=== PATIENT | female | born 1955 | race Caucasian/White ===

== ENCOUNTER 2024-02-13 08:52 | Outpatient (CLI) | payer MEDICARE, SELFPAY ==
--- NOTE | 2024-02-13 09:16 | ECG_ITS ---
Test Date: 2024-02-13 09:23:18 Measurements Intervals [place] Rate: 60 P: 40 CA: 188 QRS: -13 QRSD: 101 T: 51 QT: 411 QTc: 413 Interpretive Statements SINUS RHYTHM NORMAL ECG No previous ECG available for comparison Electronically Signed On 02-13-2024 10:48:06 CDT by Levon Perkins M.D.
== END 2024-02-13 08:53 | disposition home or self-care (01) ==
LOC: ANHLAB 09:02 → ANHCARD 09:06
PROVIDERS: PCP Family Medicine
DX: C50.812 Malignant neoplasm of overlapping sites of left female breast (principal)
CPT/HCPCS: 93005

== ENCOUNTER 2024-07-31 11:01 | Emergency (ER) | payer MEDICARE, SELFPAY ==
[2024-07-31 11:13] VITALS: BP 161/94; PULSE 61; RESP 16; TEMP 36.8; O2SAT 100
--- NOTE | 2024-07-31 12:00 | ED_ITS ---
HPI - Ear Problem General Chief complaint: Ear Stated complaint: Ear Pain Time Seen by Provider: 07/31/24 11:25 Source: patient, RN notes reviewed and old records reviewed Mode of arrival: ambulatory Limitations: no limitations History of Present Illness HPI Narrative: 68 year old female presents to [facility] with complaints of bilateral ears feel clogged and she has decreased hearing to both her ears. Patient reports that she normally has her ears irrigated and cleaned every 6 months at her doctors office and doesn't have an appointment till August. She states that he doesn't think she can wait till then to get them cleaned ears feel full and somewhat irritated, denies pain to ears. Patient reports that she has never tried Debrox to her ears. MD Complaint: other (ears feel clogged) Location: bilateral Duration: constant Severity: moderate Associated symptoms ear: decreased hearing and other (feels fullness to ears) Related Data Home Medications ?Medication ?Instructions ?Recorded ?Confirmed ?Last Taken ?Type hydrochlorothiazide 12.5 mg capsule 12.5 mg PO DAILY 01/13/21 07/31/24 07/31/24 History anastrozole 1 mg tablet 1 mg PO DAILY 07/31/24 07/31/24 07/31/24 History Allergies Allergy/AdvReac Type Severity Reaction Status Date / Time No Known Allergies Allergy Unknown Verified 07/31/24 11:20 Review of Systems Review of Systems: CONSTITUTIONAL: Denies fever, chills, or sweats. EYES: Denies visual changes, redness, or discharge. ENT: Denies rhinorrhea, congestion, sore throat, reports ear fullness and decreased hearing CARDIOVASCULAR: Denies chest pain, palpitations, or edema. RESPIRATORY: Denies cough or dyspnea. GASTROINTESTINAL: Denies abdominal pain, nausea, vomiting, or diarrhea. GENITOURINARY: Denies dysuria or hematuria. SKIN: Denies rash or itching. MUSCULOSKELETAL: Denies back pain, joint pain, or myalgia. NEUROLOGIC: Denies headache, numbness, or weakness. PSYCHIATRIC: Denies anxiety or depression. All systems reviewed & are unremarkable except as noted in HPI and below PMFSH Past Medical History Medical History Breast cancer Hypertension Surgical History Surgical History Status post left breast lumpectomy radiation treatment Family History Family History Father Alcoholism Lung cancer Hypertension Social History Social History Smoking status: Never smoker Alcohol intake: never Substance use: never Substance use type: does not use Spiritual care concerns: No Comments At time of signature, agree with nursing past medical, surgical, social and family history. There is no relevant family history pertinent to the presenting complaint Exam Narrative: GENERAL: Well-appearing, well-nourished, and in no acute distress. HEAD: Normocephalic, atraumatic. EYES: PERRLA and EOMI. ENT: Nares clear, no rhinorrhea or epistaxis. Mucous membranes moist.Bilateral ear pressure reported with bilateral cerumen impaction of bilateral ears, see procedure note. NECK: Supple. no lymphadenopathy CHEST: Clear to auscultation. No respiratory distress. SAO2 100% on room air HEART: Regular rate and rhythm. No murmur heard. Normal peripheral pulses. ABDOMEN: Soft, nontender, nondistended, normal active bowel sounds. EXTREMITIES: Normal range of motion. No edema. SKIN: Warm, dry, no rash. NEURO: No focal deficits. Alert and oriented x3. Course Course Emergency Course: Patient is aware of diagnosis, understands and agrees to treatment plan.? Anticipatory guidance given.? Patient agrees to follow-up as directed and is aware of reasons to seek care at the emergency department. Portions of this record may have been created with voice recognition software Level of Care: Express Care Visit Vital Signs Vital signs: Vital Signs Temperature 36.8 C 07/31/24 11:13 Pulse Rate 61 07/31/24 11:13 Respiratory Rate 16 07/31/24 11:13 Blood Pressure 161/94 H 07/31/24 11:13 Pulse Oximetry 100 07/31/24 11:13 Temperature 36.8 C 07/31/24 11:13 Pulse Rate 61 07/31/24 11:13 Respiratory Rate 16 07/31/24 11:13 Blood Pressure 161/94 H 07/31/24 11:13 Pulse Oximetry 100 07/31/24 11:13 Reviewed Procedures Ear Wax Removal Both Ears: Ear Wax Removal Date: 07/31/24 Ear Wax Removal Time: 11:42 Cerumenolytic Used: 5-10% Sodium Bicarb solution Results: Re-examined: cerumen removed completely TM Examination: TM(s) intact, normal appearance Ear Canal Exam: atraumatic Patient Tolerated Procedure: well Complications: no problems Technique: ear canal irrigated and ear canal curetted Additional Comments: Patient tolerated procedure well without any complaints of pain or pressure or any evidence of dizziness. Medical Decision Making MDM Narrative Medical decision making narrative: Exam findings and imaging show no acute concerns or changes; patient is non- toxic appearing and is in no distress.? Patient is appropriate for outpatient treatment and follow-up Differential Diagnosis Differential Diagnosis: bilateral ear pressure, decreased hearing, cerumen impaction, bilateral ears Medical Records Medical records reviewed: Yes I reviewed the external patient's medical records. Vital Signs Vital Signs: Vital Signs Temperature 36.8 C 07/31/24 11:13 Pulse Rate 61 07/31/24 11:13 Respiratory Rate 16 07/31/24 11:13 Blood Pressure 161/94 H 07/31/24 11:13 Pulse Oximetry 100 07/31/24 11:13 Temperature 36.8 C 07/31/24 11:13 Pulse Rate 61 07/31/24 11:13 Respiratory Rate 16 07/31/24 11:13 Blood Pressure 161/94 H 07/31/24 11:13 Pulse Oximetry 100 07/31/24 11:13 reviewed Critical Care Time Critical Care Time Critical Care Time: No Discharge Plan Discharge Clinical Impression: Impacted cerumen of both ears Patient Disposition: Home Condition: Stable Instructions: Antibiotic Form, Carbamide Peroxide (Into the ear) Additional Instructions: Increase fluids especially juices and water Zyrtec Claritin or Nilsa daily for any sinus congestion or drainage Tylenol or ibuprofen for any fever pain apply Debrox 10 drops to each ear 1 time weekly put cotton balls in ears and let soak 2 hours heat to the face 20-30 minutes 4-6 times a day for pain Salt water gargles, throat lozenges or throat sprays as desired If your symptoms persist, change or worsen significantly before you can contact your personal physician then please, without delay, go to the emergency department for further evaluation. Follow-up with PCP in 7-10 days or sooner if needed Follow up with PCP soon in regards to your blood pressure which is elevated above threshold for referral. Blood pressure above 120/80 may indicate pre- hypertension. 161/94 Patient Language: [place]ian Prescriptions: No Action anastrozole 1 mg tablet 1 mg PO DAILY hydrochlorothiazide 12.5 mg capsule 12.5 mg PO DAILY Follow-up/Referrals: PHYSICIAN,FURNACE MAINTENANCE [Primary Care Provider] - Time of Disposition: 12:03 Quality [place] Coma Scale Eyes: Open Verbal: Oriented and Alert Motor: Follows Commands Tobi Coma Total Score: 15
== END 2024-07-31 12:10 | disposition home or self-care (01) ==
PROVIDERS: Emergency Provider Registered Nurse
DX: H61.23 Impacted cerumen, bilateral (principal); I10 Essential (primary) hypertension; Z85.3 Personal history of malignant neoplasm of breast; Z90.12 Acquired absence of left breast and nipple; Z92.3 Personal history of irradiation
CPT/HCPCS: 69210; 99212; G0463